=== PATIENT | male | born 1995 | race African-American/Black ===

== ENCOUNTER 2019-01-06 13:34 | Emergency (ER) | payer MEDICAID, OTHER ==
[~2019-01-06] VITALS: Ht 177.8 cm; Wt 79.0 kg
[2019-01-06] MEDS ORDERED: LEVETIRACETAM 500MG TABLET PO ONE (14:30)
[2019-01-06 14:43] LABS: BASOPHILS % 0.5 % (0.0-2.0); EOSINOPHILS % 1.2 % (0.0-5.0); HEMATOCRIT. 42.4 % (42.0-52.0); HEMOGLOBIN. 14.5 g/dL (14.0-18.0); LYMPHOCYTES % 31.6 % (20.0-50.0); MEAN CORPUSCULAR HEMOGLOBIN 31.5 pg (28.0-32.0); MEAN PLATELET VOLUME 9.5 fl (7.4-10.4); MONOCYTES % 9.4 % (2.0-8.0); NEUTROPHILS % 57.3 % (40.0-76.0); PLATELET 184 x1000/uL (130-400); RED BLOOD CELL COUNT 4.61 mill/uL (4.7-6.1); RED CELL DISTRIBUTION WIDTH 13.7 % (11.6-14.6)
[2019-01-06 14:48] LABS: CHLORIDE 105 mEq/L (98-107)
[2019-01-06 14:58] LABS: CARBAMAZEPINE < 0.5 ug/mL (4-12)
[2019-01-06 15:50] VITALS: BP 124/81
== END 2019-01-06 16:24 | disposition home or self-care (01) ==
LOC: ER 13:34
DX: G40.909 Epilepsy, unspecified, not intractable, without status epilepticus (principal)
CPT/HCPCS: 36415; 80048; 80156; 80165; 80185; 85025; 99283; Z7610